=== PATIENT | male | born 2000 | race Caucasian/White ===

== ENCOUNTER 2021-07-21 19:03 | Emergency (ER) | payer OTHER ==
[2021-07-21 19:53] LABS: BASO # 0.02 (0.02-0.10); HEMATOCRIT 45.5 % (42.0-52.0); HEMOGLOBIN 16.2 g/dL (13.5-18.0); LYMPH# 0.65 (1.50-4.00); MEAN CELL VOLUME 83 fl (78-100); MEAN CORPUSCULAR HEMOGLOBIN 30 pg (27-31); MEAN CORPUSCULAR HGB CONC 36 g/dL (33-37); MEAN PLATELET VOLUME 9.7 fl (7.4-10.4); MONO # 0.35 (0.20-0.80); NEU # 16.83 (1.40-6.50); PLATELET COUNT 389 K/mm3 (130-400); RED BLOOD COUNT 5.46 M/mm3 (4.20-5.60); RED CELL DISTRIBUTION WIDTH 11.8 % (11.5-14.5); WHITE BLOOD COUNT 17.9 K/mm3 (4.8-10.8)
[2021-07-21 20:01] LABS: POTASSIUM 3.9 mmol/L (3.5-5.1)
[2021-07-21 20:02] LABS: CALCIUM 10.9 mg/dL (8.3-10.5)
[2021-07-21 20:03] LABS: TOTAL PROTEIN 7.9 g/dL (6.4-8.3)
[2021-07-21 20:05] LABS: TOTAL BILIRUBIN 1.3 mg/dL (0.2-1.2)
[2021-07-21 20:26] VITALS: BP 134/83
== END 2021-07-21 20:32 | disposition home or self-care (01) ==
LOC: ED 19:03
PROVIDERS: Physician Assistant
DX: F41.0 Panic disorder [episodic paroxysmal anxiety] (principal); D72.829 Elevated white blood cell count, unspecified; R11.2 Nausea with vomiting, unspecified
CPT/HCPCS: J2060; J2405; J7030

== ENCOUNTER 2021-07-22 21:03 | Emergency (ER) | payer OTHER ==
[2021-07-22 23:32] LABS: BASO # 0.02 (0.02-0.10); EOS # 0.01 (0.04-0.40); EOS % 0.1 % (0.0-4.0); MEAN CELL VOLUME 85 fl (78-100); MEAN CORPUSCULAR HEMOGLOBIN 29 pg (27-31); MEAN CORPUSCULAR HGB CONC 35 g/dL (33-37); MEAN PLATELET VOLUME 9.4 fl (7.4-10.4); NEU # 13.36 (1.40-6.50); PLATELET COUNT 386 K/mm3 (130-400); RED BLOOD COUNT 5.44 M/mm3 (4.20-5.60)
[2021-07-22 23:40] LABS: POTASSIUM 3.5 mmol/L (3.5-5.1)
[2021-07-22 23:41] LABS: CALCIUM 10.5 mg/dL (8.3-10.5)
[2021-07-23 01:08] VITALS: BP 145/88
== END 2021-07-23 01:10 | disposition home or self-care (01) ==
LOC: ED 21:03
PROVIDERS: Nurse Practitioner Family
DX: F41.0 Panic disorder [episodic paroxysmal anxiety] (principal); D72.829 Elevated white blood cell count, unspecified; F12.10 Cannabis abuse, uncomplicated
CPT/HCPCS: J2060; J2405; J7030